=== PATIENT | female | born 1985 | race Caucasian/White ===

== ENCOUNTER → 2020-11-21 | Outpatient (CLI) | payer OTHER, SELFPAY ==
--- NOTE | 2020-11-21 | LES_PTH ---
PATIENT: RHONDA BENJAMIN LOC: [facility]#:[id number] AGE/SX: 35/F ROOM: RE11/21/[address]: Dr. Praveen Todd DDS : 1985 BED: DIS: 11/21/2020 SPEC #: [id number] RECD: 11/21/20 10:08 STATUS: DORI MARIAH #: [id number] MONI: 11/21/20 00:[address]: Praveen Todd DEPT: SURGICAL PATHOLOGY RECD BY: Laxmi Shore ENTERED: 11/21/20 10:39 SP TYPE: Lesion OTHR DR: Dr. Santhosh Jones MD Tissues: Palate, NOS Procedures: Surgery Specimen Level IV HEADER OPERATION: Palate biopsy PRE-OP DIAGNOSIS: Slow growing TISSUE SUBMITTED: Probably hyperplastic tissue MICROSCOPIC DIAGNOSIS Palate, biopsy: A piece of squamous mucosa with subepithelial fibrosis and chronic inflammation. Negative for malignancy. See comment. JUN:[email or web address] 11/22/2020 COMMENT The findings may represent irritation fibroma. MICROSCOPIC DESCRIPTION Slides are reviewed. GROSS DESCRIPTION Received in fixative is one container labeled with the patient's name and designated palate. The specimen consists of a piece of [place] mucosal tissue measuring 1.5 x 0.6 x 0.5 cm. The specimen is inked, bisected and submitted entirely in one cassette. / JUN:nicola 11/21/20 TC:5 CPT: 24792
== END | disposition home or self-care (01) ==
LOC: LABSPEC 10:19
PROVIDERS: PCP Family Medicine; Visit Provider Dentist Oral and Maxillofacial Surgery
DX: K13.79 Other lesions of oral mucosa (principal)
CPT/HCPCS: 88305